=== PATIENT | male | born 1950 | race Caucasian/White ===

== ENCOUNTER → 2016-12-01 10:20 | Outpatient (CLI) | payer MEDICARE, BC | END | disposition home or self-care (01) | LOC: D.CT 10:20 | DX: K57.92 Diverticulitis of intestine, part unspecified, without perforation or abscess without bleeding (principal); R31.9 Hematuria, unspecified ==

== ENCOUNTER → 2021-04-08 09:07 | Outpatient (CLI) | payer OTHER ==
[2021-04-08 10:12] LABS: T4 THYROXIN - FREE 1.23 ng/dL (0.76-1.46); THYROID STIMULATING HORMONE 3.83 uIU/mL (0.36-3.74)
== END | disposition home or self-care (01) ==
LOC: D.LAB 09:07
PROVIDERS: ATTEND Orthopaedic Surgery
DX: E03.9 Hypothyroidism, unspecified (principal)